=== PATIENT | female | born 1940 | race Caucasian/White ===

== ENCOUNTER → 2017-02-05 10:56 | Outpatient (CLI) | payer MEDICARE, OTHER ==
[2013-03-07 13:12] VITALS: BMI 32.2
== END | disposition home or self-care (01) ==
LOC: D.CT 10:56
DX: S05.92XA Unspecified injury of left eye and orbit, initial encounter (principal)

== ENCOUNTER → 2017-02-12 10:35 | Outpatient (CLI) | payer MEDICARE, OTHER ==
[2013-03-07 13:12] VITALS: BMI 32.2
== END | disposition home or self-care (01) ==
LOC: D.CT 10:35
DX: I72.6 Aneurysm of vertebral artery (principal)

== ENCOUNTER → 2019-03-17 10:15 | Outpatient (CLI) | payer MEDICARE, OTHER ==
[2013-03-07 13:12] VITALS: BMI 32.2
== END | disposition home or self-care (01) ==
LOC: D.HCCARDIO 10:15
PROVIDERS: ATTEND Internal Medicine Cardiovascular Disease
DX: I25.119 Atherosclerotic heart disease of native coronary artery with unspecified angina pectoris (principal)

== ENCOUNTER → 2020-01-04 12:40 | Outpatient (CLI) | payer MEDICARE, OTHER ==
[2013-03-07 13:12] VITALS: BMI 32.2
== END | disposition home or self-care (01) ==
LOC: D.HCCECHO 12:40
PROVIDERS: ATTEND Internal Medicine Cardiovascular Disease
DX: R06.00 Dyspnea, unspecified (principal)